=== PATIENT | female | born 1965 | race Caucasian/White ===

== ENCOUNTER 2020-07-16 10:17 | Emergency (ER) | payer OTHER, SELFPAY ==
[2020-07-16 10:42] VITALS: BP 157/94; PULSE 71; RESP 20; TEMP 36.7; O2SAT 98
--- NOTE | 2020-07-16 11:02 | ED.BACK ---
HPI - Back Pain/Injury General Chief Complaint: Back Pain/Injury Stated Complaint: back & lower leg pain Source: patient Mode of arrival: ambulatory Limitations: no limitations History of Present Illness HPI Narrative: Patient is a 54-year-old female who presents complaining of right lower back pain that radiates down right leg intermittently x1 week. She reports pain increases at night. She denies urinary complaints. She denies injury she denies swelling in her lower extremities. She has no history of blood clots. She reports taking ibuprofen with moderate relief. Related Data Allergies Allergy/AdvReac Type Severity Reaction Status Date / Time No Known Allergies Allergy Verified 07/16/20 10:32 Review of Systems Review of Systems: Narrative: CONSTITUTIONAL: Denies fever, chills, or sweats. EYES: Denies visual changes, redness, or discharge. ENT: Denies rhinorrhea, congestion, sore throat, or otalgia. CARDIOVASCULAR: Denies chest pain, palpitations, or edema. RESPIRATORY: Denies cough or dyspnea. GASTROINTESTINAL: Denies abdominal pain, nausea, vomiting, or diarrhea. GENITOURINARY: Denies dysuria or hematuria. SKIN: Denies rash or itching. MUSCULOSKELETAL: Reports right lower back pain that radiates to right leg NEUROLOGIC: Denies headache, numbness, dizziness, or weakness. PSYCHIATRIC: Denies anxiety or depression. PMFSH Past Medical History Medical History (Updated 07/16/20 @ 11:07 by CLAUDIA Pineda) No significant past medical history Surgical History Surgical History (Updated 07/16/20 @ 11:03 by CLAUDIA Pineda) No significant past surgical history Family History Family History (Updated 07/16/20 @ 11:04 by CLAUDIA Pineda) Other No significant family history Social History Social History (Updated 07/16/20 @ 11:04 by CLAUDIA Pineda) Smoking status: Never smoker Alcohol intake: never Substance use: never Gender identity (if verbalized by the patient): Female Comments At the time of signature, I have reviewed and agree with nursing past medical, surgical, social, and family history unless otherwise noted. Please see nursing chart for further information. There is no relevant family history pertinent to the presenting complaint. Exam Narrative: Exam Narrative: GENERAL: Well-appearing, well-nourished, and in no acute distress. HEAD: Normocephalic, atraumatic. EYES: No redness or drainage. ENT: Mucous membranes pink and moist. CHEST: No respiratory distress. HEART: Regular rate and rhythm. MUSCULOSKELETAL: No bony tenderness. EXTREMITIES: Normal range of motion. No edema. SKIN: Warm, dry, no rash. NEURO: No focal deficits. Alert and oriented x3. Gait steady. PSYCH: Normal affect. No signs of depression or anxiety. Course Vital Signs Vital signs: Vital Signs Temperature 36.7 C 07/16/20 10:42 Pulse Rate 71 07/16/20 10:42 Respiratory Rate 20 07/16/20 10:42 Blood Pressure 157/94 H 07/16/20 10:42 Pulse Oximetry 98 07/16/20 10:42 Temperature 36.7 C 07/16/20 10:42 Pulse Rate 71 07/16/20 10:42 Respiratory Rate 20 07/16/20 10:42 Blood Pressure 157/94 H 07/16/20 10:42 Pulse Oximetry 98 07/16/20 10:42 Reviewed-patient is informed that they may have pre-hypertension or hypertension based on a blood pressure reading. I recommend the patient call the primary care provider listed on their discharge instructions or a physician of their choice this week to arrange follow-up for further evaluation of possible pre-hypertension or hypertension. MDM - Back Pain/Injury MDM Narrative Medical decision making narrative: Patient most likely has sciatica. Discussed the use of NSAIDs and muscle relaxant. Patient does not currently have a PCP, PCP recommended for airways control specialist us. Discussed with patient the need for follow-up care. Patient is aware if she develops any swelling in her lower extremity that she is to go to the emergency department
== END 2020-07-16 11:16 | disposition home or self-care (01) ==
PROVIDERS: Emergency Provider Nurse Practitioner
DX: M54.31 Sciatica, right side (principal)
CPT/HCPCS: 99213; G0463

== ENCOUNTER 2021-06-27 13:17 | Emergency (ER) | payer OTHER, SELFPAY ==
[2021-06-27 13:39] VITALS: BP 136/81; PULSE 87; RESP 18; TEMP 36.7; O2SAT 94
--- NOTE | 2021-06-27 14:04 | ED.GENADULT ---
HPI - General Adult General Chief complaint: Upper Respiratory Infection Stated complaint: sinus pain/pressure, sorethroat Source: patient Mode of arrival: ambulatory Limitations: no limitations History of Present Illness HPI narrative: Patient is a 55-year-old female who presents to [facility] via POV for evaluation of upper respiratory symptoms that have been present for 6 days. Additionally, she reports mild sore throat, nasal drainage, sinus pressure, and fatigue. Ibuprofen and [place] improves symptoms. Nothing worsens symptoms. Patient reports she was exposed to her mother who was recently diagnosed with a URI. She states her mother tested negative for COVID-19. Patient states she is unvaccinated against Covid and influenza. Related Data Allergies Allergy/AdvReac Type Severity Reaction Status Date / Time No Known Allergies Allergy Verified 06/27/21 13:45 Review of Systems Review of Systems: Denies fever, chills, sweats, change in appetite, poor p.o. intake, sneezing, sinus pain, headaches, LOC, dizziness, ear pain, tinnitus, vertigo, drooling, difficulty swallowing, voice changes, abdominal pain, nausea, vomiting, diarrhea, cough, shortness of breath, wheezing, chest pain, and heart palpitations PMFSH Past Medical History Medical History No significant past medical history Surgical History Surgical History No significant past surgical history Family History Family History Other No significant family history Social History Social History Smoking status: Never smoker Alcohol intake: never Substance use: never Gender identity (if verbalized by the patient): Female Comments I have reviewed and agree with the patient's past medical, surgical, social, and family hx as documented by the RN. There is no relevant family history pertinent to the presenting complaint. Exam Narrative: GENERAL: Well-appearing, well-nourished, and in no acute distress. HEAD: Normocephalic, atraumatic. No sinus tenderness or facial swelling appreciated. EYES: PERRLA and EOMI. No evidence of erythema, swelling, or drainage. ENT: Bilateral external ears and ear canals normal. Bilateral TMs are normal.No TM perforation. Nares clear, no rhinorrhea or epistaxis. Bilateral turbinates without erythema/ swelling. Mucous membranes moist and pink. Uvula is midline without erythema and swelling. Posterior pharynx is mildly injected otherwise normal. Breath odor and voice normal. NECK: Supple. No Lymphadenopathy or nuchal rigidity appreciated. CHEST: Bilateral lung hewitt are clear to auscultation. No respiratory distress. No evidence of cough or pleuritic cp upon examination. HEART: Regular rate and rhythm. No murmur, gallop, or rub heard. EXTREMITIES: Normal range of motion. No edema. SKIN: Warm, dry, no rash. NEURO: No focal deficits. Alert and oriented x3. Course Vital Signs Vital signs: Vital Signs Temperature 98.1 F 06/27/21 13:39 Pulse Rate 87 06/27/21 13:39 Respiratory Rate 18 06/27/21 13:39 Blood Pressure 136/81 06/27/21 13:39 Pulse Oximetry 94 06/27/21 13:39 Temperature 98.1 F 06/27/21 13:39 Pulse Rate 87 06/27/21 13:39 Respiratory Rate 18 06/27/21 13:39 Blood Pressure 136/81 06/27/21 13:39 Pulse Oximetry 94 06/27/21 13:39 Reviewed Medical Decision Making Differential Diagnosis Differential Diagnosis: Allergic rhinitis, ABRS, acute viral sinusitis, strep pharyngitis, nasopharyngitis, bronchitis, pneumonia, AOM, otitis externa, viral URI, influenza, covid-19 Medical Records Medical records reviewed: Yes I reviewed the external patient's medical records. Vital Signs Vital Signs: Vital Signs Temperature 98.1 F 06/27/21
== END 2021-06-27 14:15 | disposition home or self-care (01) ==
PROVIDERS: Emergency Provider Nurse Practitioner Family
DX: J06.9 Acute upper respiratory infection, unspecified (principal)
CPT/HCPCS: 99213; G0463

== ENCOUNTER 2023-09-12 10:57 | Emergency (ER) | payer OTHER, SELFPAY ==
--- NOTE | 2023-09-12 11:02 | ED.URI ---
HPI - URI/Sore Throat General Chief Complaint: Upper Respiratory Infection Stated Complaint: sinus infection Time Seen by Provider: 09/12/23 11:20 Source: patient and RN notes reviewed Mode of arrival: ambulatory Limitations: no limitations History of Present Illness HPI Narrative: 57-year-old female presents with concern for 11 day history of sinus congestion, headache, drainage, cough. Reports she has taken ibuprofen. MD elicited complaint: cough and nasal congestion Related Data Allergies Allergy/AdvReac Type Severity Reaction Status Date / Time No Known Allergies Allergy Verified 09/12/23 11:16 Review of Systems Review of Systems: CONSTITUTIONAL: Denies malaise, chills, sweats, or fever. EYES: Denies visual changes, redness, or discharge. ENT: Reports rhinorrhea, congestion, sinus pain CARDIOVASCULAR: Denies chest pain, palpitations, or edema. RESPIRATORY: Reports cough. Denies dyspnea. GASTROINTESTINAL: Denies abdominal pain, nausea, vomiting, diarrhea SKIN: Denies rash or itching. MUSCULOSKELETAL: Denies myalgia. NEUROLOGIC: Denies headache. All systems reviewed & are unremarkable except as noted in HPI and below PMFSH Past Medical History Medical History No significant past medical history Surgical History Surgical History No significant past surgical history Family History Family History Other No significant family history Social History Social History Smoking status: Never smoker Alcohol intake: never Substance use: never Gender identity (if verbalized by the patient): Female Comments At time of signature, agree with nursing past medical, surgical, social and family history. There is no relevant family history pertinent to the presenting complaint Exam Narrative: GENERAL: Well-appearing, well-nourished, and in no acute distress. HEAD: Normocephalic EYES: PERRLA, conjunctivae clear ENT: Nares clear, turbinates edematous and erythematous. Mucous membranes moist. TM pearly dumont with dull light reflex bilaterally; no tragal tenderness. Oropharynx not erythematous without lesions. Tonsils not enlarged and without exudate, no drooling, no hoarseness, no trismus, uvula midline. NECK: Supple. No lymphadenopathy CHEST: Clear to auscultation, breath sounds equal. No wheezing, rhonchi, rales, or stridor. No respiratory distress, speaks in full sentences. HEART: Regular rate and rhythm. No murmur heard. SKIN: Warm, dry, no rash. NEURO: Alert and oriented x3. PSYCH: Normal mood and affect Course Course Emergency Course: Patient is aware of diagnosis, understands and agrees to treatment plan. Anticipatory guidance given. Patient agrees to follow-up as directed and is aware of reasons to seek care at the emergency department. Portions of this record may have been created with voice recognition software Level of Care: Express Care Visit Vital Signs Vital signs: Reviewed. MDM - URI/Sore Throat MDM Narrative Medical decision making narrative: Differential diagnosis considered: Vargas virus, strep pharyngitis, allergic rhinitis, upper respiratory tract infection, sinusitis, rhinosinusitis, nasopharyngitis. viral pharyngitis, otitis media, otitis externa, pneumonia, bronchitis, viral cough syndrome, viral syndrome, and influenza. Exam findings show no acute concerns or changes; patient is non-toxic appearing and is in no distress. Patient is appropriate for outpatient treatment and follow-up. Lab Data Attestation: I reviewed the patient's lab results. Critical Care Time Critical Care Time Critical Care Time: No Discharge Plan Discharge Clinical Impression: Sinobronchitis Patient Disposition: Home, Self-Care Condition: Stable Instructions:
[2023-09-12 11:13] VITALS: BP 117/68; PULSE 60; RESP 16; TEMP 36.1; O2SAT 100
== END 2023-09-12 11:28 | disposition home or self-care (01) ==
PROVIDERS: Emergency Provider Nurse Practitioner
DX: J32.9 Chronic sinusitis, unspecified (principal); J40 Bronchitis, not specified as acute or chronic
CPT/HCPCS: 99213; G0463